=== PATIENT | male | born 1995 | race Caucasian/White ===

== ENCOUNTER 2018-10-07 17:02 | Emergency (ER) | payer OTHER ==
[~2018-10-07] VITALS: Ht 177.8 cm; Wt 60.8 kg
== END 2018-10-07 19:31 | disposition home or self-care (01) ==
LOC: ER 17:02
DX: S61.412A Laceration without foreign body of left hand, initial encounter (principal); W45.8XXA Other foreign body or object entering through skin, initial encounter; Y93.89 Activity, other specified; Y92.89 Other specified places as the place of occurrence of the external cause; Y99.8 Other external cause status

== ENCOUNTER 2018-10-15 07:57 | Emergency (ER) | payer OTHER ==
[~2018-10-15] VITALS: Ht 177.8 cm; Wt 62.6 kg
== END 2018-10-15 11:05 | disposition home or self-care (01) ==
LOC: ER 07:57
DX: Z48.02 Encounter for removal of sutures (principal)